=== PATIENT | female | born 2000 | race Caucasian/White ===

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

== ENCOUNTER 2019-01-09 06:47 | Emergency (ER) | payer MEDICAID ==
[~2019-01-09] VITALS: Ht 157.5 cm; Wt 65.0 kg
[~2019-01-09 06:47] MED LIST: FIORICET PO; ONDA4TAB14 PO
[2019-01-09] MEDS ORDERED: KETOROLAC 15 MG INJ IV STA (07:02)
[2019-01-09 07:08] VITALS: Ht 157.5 cm; Wt 65.0 kg
[2019-01-09] MEDS ORDERED: LORAZEPAM 2 MG INJ IV ONE (07:30)
[2019-01-09] MEDS ORDERED: IBUP-1542 PO (09:04)
[2019-01-09] MEDS ORDERED: HYDR-4011 PO (09:04)
[2019-01-09] MEDS ORDERED: ONDA4TAB8 PO (09:04)
--- NOTE | 2019-01-09 09:08 | ERD ---
ER Documentation Chief Complaint Chief Complaint RLQ abdominal pain sudden onset with nausea HPI 18-year-old female brought to the emergency department by paramedics for evaluation of right lower quadrant pain. Patient is initially difficult historian with most of the history available from my conversations with the paramedics. According to the paramedics, patient was picked up at a local hotel where she was by herself. It was noted that there was a significant amount of coello in the hotel room but no other adult people with her. Patient states she had the acute onset of a severe right lower quadrant abdominal pain which was associated with nausea. She was hyperventilating and provide no further details. She reported no obvious hematuria. She reported no diarrhea. She reports never having similar pain. She currently reports the pain is severe and continues to hyperventilate. ROS All systems reviewed and are negative except as per history of present illness. Medications Home Meds Active Scripts Ondansetron Hcl* (Zofran*) 4 Mg Tablet, 4 MG PO Q8H PRN for NAUSEA AND/OR VOMITING, #30 TAB Prov:ROBERTA GARCÍA 01/09/19 Hydrocodone/Acetaminophen (Enon 5-325 Tablet) 1 Each Tablet, 1 EACH PO TID for pain, #5 TAB Prov:ROBERTA GARCÍA 01/09/19 Ibuprofen* (Ibuprofen*) 600 Mg Tablet, 600 MG PO Q6H PRN for PAIN, #30 TAB Prov:ROBERTA GARCÍA 01/09/19 Discontinued Scripts Acetamin/Butalbital/Caffeine* (Fioricet*) [id number] Tab, 1 TAB PO Q6H PRN for PAIN, #30 TAB Prov:CHRIS KENNEDY PA-C 11/13/18 Ondansetron (Ondansetron Odt) 4 Mg Tab.rapdis, 4 MG PO Q6H PRN for NAUSEA AND/OR VOMITING, #10 TAB Prov:CHRIS KENNEDY PA-C 11/13/18 Allergies Allergies: Coded Allergies: No Known Allergy (Unverified , 01/09/19) PMhx/Soc Hx Alcohol Use: No Hx Tobacco Use: Yes FmHx Unknown at this time Physical Exam Vitals Vital Signs Date Temp Pulse Resp B/P (MAP) Pulse Ox O2 O2 Flow FiO2 Time Delivery Rate 01/09/19 97.5 63 18 125/76 100 07:08 (92) Physical Exam GENERAL: Well-developed well-nourished female who appears to be uncomfortable and hyperventilating HEENT: Pupils equal, round, and reactive to light. EOMI. There is no scleral icterus. NECK: C-spine is soft and supple, there is no meningismus. There is no cervical lymphadenopathy. LUNGS: Clear to auscultation bilaterally. There are no rales, wheezes or rhonchi. HEART: Regular rate and rhythm, no murmurs, clicks, rubs or gallops. ABDOMEN: Soft, non-tender, non-distended. There are bowel sounds in all four quadrants. No rebound or guarding. EXTREMITIES: There is no peripheral cyanosis or edema. No focal swelling or erythema. NEURO: The patient moves all four extremities with 5/5 strength. Cranial nerves II - XII are intact. Normal gait. Alert and oriented SKIN: There is no apparent rash or petechiae. HEME/LYMPHATIC: There is no evidence of excessive bruising or lymphedema. PSYCHIATRIC: Patient appears anxious and hyperventilating Result Diagram: 01/09/1972001/09/19720 Results 24 hrs Laboratory Tests Test 01/09/19 07:21 01/09/19 08:33 White Blood Count 8.7 10^3/ul Red Blood Count 4.25 10^6/ul Hemoglobin 13.3 g/dl Hematocrit 39.4 % Mean Corpuscular Volume 92.7 fl Mean Corpuscular Hemoglobin 31.3 pg Mean Corpuscular Hemoglobin Concent 33.8 g/dl Red Cell Distribution Width 12.0 % Platelet Count 268 10^3/UL Mean Platelet Volume 11.9 fl Immature Granulocytes % 0.300 % Neutrophils % 68.3 % Lymphocytes % 22.0 % Monocytes % 7.4 % Eosinophils % 1.5 % Basophils % 0.5 % Nucleated Red Blood Cells % 0.0 /100WBC Immature Granulocytes # 0.030 10^3/ul Neutrophils # 6.0 10^3/ul Lymphocytes # 1.9 10^3/ul Monocytes # 0.7 10^3/ul Eosinophils # 0.1 10^3/ul Basophils # 0.0 10^3/ul Nucleated Red Blood Cells # 0.0 10^3/ul Sodium Level 143 mmol/L Potassium Level 3.5 mmol/L Chloride Level 105 mmol/L Carbon Dioxide Level 23 mmol/L Anion Gap 15 Blood Urea Nitrogen 16 mg/dl Creatinine 1.06 mg/dl Est Glomerular Filtrat Rate mL/min > 60 mL/min Glucose Level 135 mg/dl Calcium Level 9.9 mg/dl Total Bilirubin 0.1 mg/dl Direct Bilirubin 0.00 mg/dl Indirect Bilirubin 0.1 mg/dl Aspartate Amino Transf (AST/SGOT) 30 IU/L Alanine Aminotransferase (ALT/SGPT) 19 IU/L Alkaline Phosphatase 90 IU/L Total Protein 7.8 g/dl Albumin 4.9 g/dl Globulin 2.90 g/dl Albumin/Globulin Ratio 1.68 Lipase 37 U/L Serum HCG, Qualitative NEGATIVE Urine Color YELLOW Urine Clarity TURBID Urine pH 7.0 Urine Specific [place] 1.028 Urine Ketones 2+ mg/dL Urine Nitrite NEGATIVE mg/dL Urine Bilirubin NEGATIVE mg/dL Urine Urobilinogen 1+ mg/dL Urine Leukocyte Esterase NEGATIVE Araceli/ul Urine Microscopic RBC > 182 /HPF Urine Microscopic WBC 0 /HPF Urine Squamous Epithelial Cells MODERATE /HPF Urine Amorphous Crystals MODERATE /HPF Urine Mucus MANY /HPF Urine Hemoglobin 3+ mg/dL Urine Glucose NEGATIVE mg/dL Urine Total Protein 1+ mg/dl Current Medications Medications Dose Sig/Shay Start Time Status Last (Trade) Ordered Route PRN Stop Time Admin Dose Reason Admin Lorazepam 0.5 mg ONCE ONCE 01/09/19 DC 01/09/19 (Ativan) IV 07:30 07:18 01/09/19 07:31 Ketorolac 15 mg ONCE STAT 01/09/19 DC 01/09/19 Tromethamine IV 07:02 07:18 (Toradol) 01/09/19 07:03 Procedures/MDM Patient was taken to a room, seen and evaluated. Comfort measures were initiated . Diagnostic tests were ordered and reviewed. RADIOLOGY: Reviewed with the radiologist REEVALUATION: 904: Diagnostic tests were appreciated. Patient was reevaluated. She appeared much more comfortable and significant less anxious after pain medication. Her examination of her abdomen remained benign. MEDICAL DECISION MAKIN-year-old female resents the emergency department with abdominal pain of uncertain etiology. Evaluation of abdominal pain focused on ruling out appendicitis and other high risk causes. Her diagnostic workup shows evidence of a kidney stone but no evidence of secondary infection or significant obstruction. Her pain is well controlled and she seems appropriate for discharge. I have concerns regarding the social situation that she came from and will be consulting with social services aide prior to discharge for further support of the patient as necessary. Departure Diagnosis: Primary Impression: Kidney stone Condition: Stable Patient Instructions: Kidney Stone (Urine) Additional Instructions: Please see your doctor or the urologist this week for a recheck. ROBERTA GARCÍA Jan 09, 2019 09:08
[2019-01-09 09:33] VITALS: BP 116/56; PULSE 67; RESP 18
== END 2019-01-09 10:16 | disposition home or self-care (01) ==
LOC: E/R 06:47
DX: N20.0 Calculus of kidney (principal); Z87.891 Personal history of nicotine dependence
CPT/HCPCS: 36415; 74176; 80053; 81001; 83690; 84703; 85025; 96374; 96375; J1885; J2060; Z7502

== ENCOUNTER 2019-01-15 00:14 | Emergency (ER) | payer SELFPAY ==
[~2019-01-15] VITALS: Ht 167.6 cm; Wt 63.3 kg
[~2019-01-15 00:14] MED LIST changes: -FIORICET PO; +HYDR-4011 PO; +IBUP-1542 PO; -ONDA4TAB14 PO; +ONDA4TAB8 PO
[2019-01-15 00:20] VITALS: BP 130/76; PULSE 80; RESP 20; Ht 167.6 cm; Wt 63.3 kg
== END 2019-01-15 00:49 | disposition left against medical advice (07) ==
LOC: FTE 00:14
DX: Z53.21 Procedure and treatment not carried out due to patient leaving prior to being seen by health care provider (principal)